=== PATIENT | female | born 1975 | race Caucasian/White ===

== ENCOUNTER 2017-10-09 08:24 | Inpatient (IN) | payer OTHER ==
[~2017-10-09] VITALS: Ht 160 cm; Wt 83.9 kg
[2017-10-18] MEDS ORDERED: PERCOCET 5-3251 EACH PO ×2 (08:24→08:25)
== END 2017-10-18 09:29 | DRG 742 ==
LOC: O/R 10-16 05:30 → OB/GYN 10-16 05:30 → SURH 10-16 07:00 → OB/GYN 10-16 14:02
PROVIDERS: Specialist; Surgery
PROC: 0UT90ZZ Resection of Uterus, Open Approach (ICD-10-PCS; principal; 2017-10-16 07:00)
PROC: 0DQ80ZZ Repair Small Intestine, Open Approach (ICD-10-PCS; 2017-10-16 07:00)
DX: D25.1 Intramural leiomyoma of uterus (principal); K91.72 Accidental puncture and laceration of a digestive system organ or structure during other procedure; D25.0 Submucous leiomyoma of uterus; D25.2 Subserosal leiomyoma of uterus; K66.0 Peritoneal adhesions (postprocedural) (postinfection); N72 Inflammatory disease of cervix uteri